=== PATIENT | female | born 1990 | race Asian ===

== ENCOUNTER 2018-03-10 20:00 | Emergency (ER) | payer SELFPAY ==
[~2018-03-10] VITALS: Ht 162.6 cm; Wt 50.0 kg
[2018-03-10 21:00] VITALS: BP 0/0
== END 2018-03-10 21:20 | disposition home or self-care (01) ==
LOC: ER 20:00
DX: F41.0 Panic disorder [episodic paroxysmal anxiety] (principal); Z78.1 Physical restraint status
CPT/HCPCS: 99284